=== PATIENT | male | born 1940 ===

== ENCOUNTER 2019-01-20 11:26 | Emergency (ER) | payer OTHER ==
[~2019-01-20] VITALS: Ht 172.7 cm; Wt 86.2 kg
[~2019-01-20 11:26] MED LIST: NORVASC2.5 MG PO
[2019-01-20] MEDS ORDERED: METFORMIN HCL500 M2 (11:39)
[2019-01-20] MEDS ORDERED: LIPITOR40 MG (11:39)
[2019-01-20] MEDS ORDERED: COZAAR25 MG (11:39)
== END 2019-01-20 15:58 | disposition home or self-care (01) ==
LOC: ER 11:26
DX: S20.212A Contusion of left front wall of thorax, initial encounter (principal); W18.09XA Striking against other object with subsequent fall, initial encounter; Y93.89 Activity, other specified; Y92.017 Garden or yard in single-family (private) house as the place of occurrence of the external cause; Y99.8 Other external cause status